=== PATIENT | female | born 1935 | race Caucasian/White ===

== ENCOUNTER → 2017-10-13 | Outpatient (CLI) | payer MEDICARE ==
[~2017-10-13] MED LIST: CALC-896 PO; FLAX100041 PO; LACT1CAP2 PO; MULT-885 PO; PRAV10TA46 PO; PRAV20TA66 PO; UBID50CA24 PO; VIT1CAPS33 PO
[2017-10-13 12:28] LABS: PLATELET COUNT, AUTOMATED 233 K/uL (150-450)
== END ==
LOC: LAB 12:05
PROVIDERS: ATTEND Family Medicine
DX: R53.83 Other fatigue (principal)
CPT/HCPCS: 82040; 82247; 82310; 82374; 82435; 82565; 82947; 84075; 84132; 84155; 84295; 84443; 84450; 84460; 84520; 85025